=== PATIENT | male | born 1935 | race Caucasian/White ===

== ENCOUNTER 2018-10-25 19:28 | Emergency (ER) | payer MEDICARE, OTHER ==
[~2018-10-25] VITALS: Ht 185.4 cm; Wt 83.9 kg
[~2018-10-25 19:28] MED LIST: AMLO10TA8 PO; APIX2.5T PO; APIX5TAB PO; ASCO500T4 PO; ASPI-484 PO; ATOR40TA PO; CALC-76 PO; CLOP75TA PO; CLOP75TA52 PO; FINA5TAB4 PO; ISOS60TA2 PO; MAGN400C PO; METO-236 PO; METO-237 PO; OMEG500C PO; RANO500T2 PO; RED600CA2 PO; VITA400C36 PO; VITA400C6 PO
[2018-10-25] MEDS ORDERED: AFRIN- Non-Preferred NS ONE (20:02)
[2018-10-25] MEDS ORDERED: SODIUM CHLORIDE IR ONE (20:05)
[2018-10-25 20:12] VITALS: BP 100/51
--- NOTE | 2018-10-25 20:14 | ER.PDOC ---
General Chief Complaint: Requesting Medical Care Stated Complaint: NOSEBLEED Time seen by MD: 21:16 Source: patient, family Exam Limitations: no limitations History of Present Illness Timing/Duration: abrupt, yesterday Location: left nare Severity: moderate Prior symptoms/Treatment: Similar symptoms previous, Recenly Seen, Treated by Doctor; No Recently Hospitalized Allergies: Coded Allergies: No Known Allergies (Unverified , 12/02/16) Home Meds Reported Medications Isosorbide Mononitrate (ISOSORBIDE MONONITRATE ER) 60 Mg Tab.er.24h, 40 MG PO DAILY24 10/10/17 Amlodipine Besylate (AMLODIPINE BESYLATE) 10 Mg Tablet, 1 TAB PO DAILY, #30 TAB 5 Refills 10/10/17 Vitamin E Mixed (VITAMIN E) 400 Unit Capsule, 1200 UNITS PO HS, CAPSULE 10/10/17 Ranolazine (RANEXA) 500 Mg Tab.er.12h, 1 TAB PO BID, #60 TAB 3 Refills 12/02/16 Metoprolol Succinate (METOPROLOL SUCCINATE) 25 Mg Tab.er.24h, 1 TAB PO DAILY, # 30 TAB 5 Refills 09/24/16 Atorvastatin 40MG (LIPITOR 40MG) 40 Mg Tablet, 1 TAB PO EVERY OTHER DAY, #30 TAB 5 Refills 09/22/16 Apixaban (Eliquis) 5 Mg Tablet, 5 MG PO BID for BLOOD THINNER, #60 TABLET 11/12/15 Magnesium Oxide (MAGNESIUM) 400 Mg Capsule, 1 CAP PO DAILY, #30 CAP 5 Refills 11/06/15 Calcium Carb & Cit/Vitamin D3 (CALCIUM + D3 ER TABLET) 1 Each Tablet.er, 1 EACH PO DAILY 11/06/15 Aspirin (ASPIR 81) 81 Mg Tablet.dr, 1 TAB PO DAILY, #30 TAB 5 Refills 11/06/15 [place]-3 Fatty Acids (FISH OIL) 500 Mg Capsule.dr, 500 MG PO DAILY 11/06/15 Ascorbic Acid (VITAMIN C) 500 Mg Tablet, 500 MG PO DAILY, TABLET 11/06/15 Vitamin E (Dl,Tocopheryl Acet) (VITAMIN E) 400 Unit Capsule, 2400 UNIT PO DAILY , CAPSULE 11/06/15 Constitutional: see HPI Eyes: denies no symptoms reported; see HPI; denies blindness, denies blurred vision, denies drainage, denies decreased acuity, denies foreign body sensation , denies inflammation, denies pain, denies photophobia, denies previous injury, denies shadows, denies tunnel vision, denies vision change, denies contact lenses, denies glasses, denies other Ears: denies no symptoms reported, denies see HPI, denies dizziness, denies pain, denies tinnitus, denies bloody discharge, denies clear discharge, denies purulent discharge, denies serosanguinous discharge, denies previous injury, denies other Nose: no symptoms reported, epistaxis, bloody discharge Mouth: see HPI, clots Throat: no symptoms reported; denies see HPI, denies pain, denies swelling, denies discharge, denies neck stiffness, denies hoarse, denies aphonia, denies muffled, denies painful swallowing, denies difficulty with fluids, denies previous injury, denies other Respiratory: no symptoms reported; denies see HPI, denies cough, denies orthopnea, denies shortness of breath, denies stridor, denies wheezing, denies other Cardiovascular: no symptoms reported; denies see HPI, denies chest pain, denies edema, denies palpitations, denies syncope, denies other Gastrointestinal: no symptoms reported; denies see HPI, denies abdominal pain, denies constipation, denies diarrhea, denies nausea, denies vomiting, denies other Musculoskeletal: no symptoms reported; denies see HPI, denies back pain, denies gout, denies joint pain, denies joint swelling, denies muscle pain, denies muscle stiffness, denies neck pain, denies other Skin: denies no symptoms reported, denies see HPI, denies change in color, denies change in hair/nails, denies dryness, denies lesions, denies lumps, denies rash, denies other Neurological: no symptoms reported; denies see HPI, denies anxiety, denies depressed, denies emotional problems, denies headache, denies numbness, denies paresthesia, denies pre-existing deficit, denies seizure, denies tingling, denies tremors, denies weakness, denies other Hematologic/Lymphatic: no symptoms reported; denies see HPI, denies anemia, denies blood clots, denies easy bleeding, denies easy bruising, denies swollen glands, denies other Immunological/Allergic: no symptoms reported; denies see HPI, denies food allergy, denies grass allergy, denies mold allergy, denies pollen allergy, denies HIV/AIDS, denies transplant All Other Systems: Reviewed and Negative Past Medical History Medical History: angina, coronary artery disease, cardiac problems, hypertension Surgical History: cardiac cath, cholecystectomy, stent Family History Significant Family History: no pertinent family hx Social History Smoking: non-smoker Drug Use: none Reviewed Nursing Reviewed: Vital Signs, Abn. Noted, Nursing Assessment Physical Exam General Appearance: alert, no distress Nose: dried blood, fresh clots, active bleeding (L), minimal bleeding, posterior Head/Neck: atraumatic, thyroid nml Eyes/Ears: eyes nml inspection, PERRL, no nystagmus, TM nml Mouth: lips, gums nml, pharynx nml NEURO/PSYCH: oriented X3, mood/effect nml Respiratory: no resp. distress CVS: reg. rate & rhythm, heart sounds nml Abdomen: non-tender, no organomegaly Skin Exam: Normal Color, Warm/Dry Comments Bleeding from left nostril , no site seen, no rodrigez, no hx of trauma. Nasal Packing Nasal Packing : Clots Cleared From Nasal: by pt blowing Nasal Drops Instilled: Afrin Inspected With: otoscope Nasal Packing Used: Anterior, Posterior, Hemostatic nasal balloon Progress 7.5 rhino placed with 7 ml air placed. Results/Orders Results/Orders Administered Medications Medications (Trade) Dose Ordered Sig/Gonzalo Route PRN Reason Start Time Stop Time Status Last Admin Dose Admin Oxymetazoline HCl (Afrin) 1 sprays OT ONCE NS 10/25/18 20:30 10/25/18 20:31 DC 10/25/18 20:30 Departure Time of Disposition: 21:20 Disposition: 01 HOME, SELF-CARE Impression: Primary Impression: Epistaxis Additional Impressions: H/O epistaxis Left-sided epistaxis Condition: Stable Referrals: DIOGO MACDONALD DO (PCP) PRIMARY CARE PROVIDER Duration or Time Spent with Pa: 40 min Problem Qualifiers RAHEL LOZA DO Oct 25, 2018 20:14
--- NOTE | 2018-10-25 20:17 | NUR ---
DR COLLINS AT BEDSIDE, TO EXAMINE PATIENT. REMOVED GAUZE PACKING PLACED BY [facility].
[2018-10-25] MEDS ORDERED: AFRIN NS ONE (20:30)
[2018-10-25 21:37] VITALS: BP 100/51
== END 2018-10-25 21:20 | disposition home or self-care (01) ==
LOC: ER 19:28
DX: R04.0 Epistaxis (principal); I10 Essential (primary) hypertension; I25.10 Atherosclerotic heart disease of native coronary artery without angina pectoris; Z79.82 Long term (current) use of aspirin; Z79.01 Long term (current) use of anticoagulants; Z79.899 Other long term (current) drug therapy; Z90.49 Acquired absence of other specified parts of digestive tract
CPT/HCPCS: 30901; 99284; A4217; 30905